=== PATIENT | female | born 2000 | race Two or more races ===

== ENCOUNTER 2025-06-28 17:48 | Emergency (ER) | payer MEDICAID, OTHER ==
[~2025-06-28] VITALS: Ht 154.9 cm; Wt 100.4 kg
[2025-06-28] MEDS ORDERED: ALBUTEROL SULF 2.5 MG/0.5ML(0.5%) NEB SOLN NEB ONE (18:15)
[2025-06-28] MEDS ORDERED: IPRATROPIUM BROM 0.5 MG/2.5ML INH SOL NEB ONE (18:15)
--- NOTE | 2025-06-28 18:29 | ED.PDOC ---
SOB-HPI HPI Comments s Pt presents to the ER with C/O asthma attack. Pt states that her family dog got out of their yard and she was chasing the dog causing her to wheeze and become SOB. Pt reports tightness in throat, pt denies SOB, RR even and unlabored, SPO2 97% on RA, lung sounds clear bilaterally. Pt secondary compliant of anxiety. PMH- Lupus, anemia, CKF, fatty liver, HTN, Depression, hyperparathyroidism Chief Complaint: Asthma Time Seen by MD: 18:00 Reviewed notes: Nurses Notes, Medications, Allergies Information Source: Patient Mode of Arrival: Ambulatory Past Medical History PAST MEDICAL HISTORY: Anxiety Past Medical History (Other): Lupus Family History Family History: Unknown All Other Systems: Reviewed and Negative (see hpi) Physical Exam General Appearance: No Apparent Distress, Normal HEENT: Normal ENT Inspection, Pharynx Normal, TMs Normal Neck: Full Range of Motion, Non-Tender, Normal Respiratory: Decreased Breath Sounds, No Accessory Muscle Use, No Respiratory Distress, Wheezing Cardiovascular: No Edema, No JVD, No Murmur, No Gallop, Normal Peripheral Pulses, Regular Rate/Rhythm Breast Exam: Deferred Gastrointestinal: No Organomegaly, Non Tender, No Pulsatile Mass, Normal Bowel Sounds, Soft Genitalia: Deferred Pelvic: Deferred Rectal: Deferred Extremities: Normal range of motion, No pedal edema Musculoskeletal : Apperance: Normal Neurologic: Alert, No Motor Deficits, Normal Affect, Normal Mood, No Sensory Deficits Cerebellar Function: Normal Reflexes: Normal Skin: Dry, Normal Color, Warm Lymphatic: No Adenopathy Was a procedure done? Was a procedure done?: No Differential Dx Differential Diagnosis: Anxiety, Asthma, Bronchitis, Panic Attack, Pneumonia, Pneumothorax X-Ray, Labs, Meds, VS Vital Signs Date Time Temp Pulse Resp B/P (MAP) Pulse Ox O2 Delivery O2 Flow Rate FiO2 06/28/25 18:50 18 98 Room Air* 0 21 06/28/25 18:30 98.8 106 17 144/88 (106) 99 98.8 06/28/25 17:56 97.8 106 22 147/99 99 97.8 Current Medications Medications (Trade) Dose Ordered Sig/Josefa Route Start Time Stop Time Status Last Admin Albuterol (Ventolin Medneb) 2.5 mg ONCE ONCE NEB 06/28/25 18:45 06/28/25 18:46 DC 06/28/25 18:50 Ipratropium [place] (Atrovent Medneb) 0.5 mg ONCE ONCE NEB 06/28/25 18:45 06/28/25 18:46 DC 06/28/25 18:50 X-Ray, Labs, Meds, VS Comment Noted improvement after breathing treatment patient requesting discharge at this time. Advised to rest increase p.o. fluids with electrolytes. Follow up with her PCP in 2-3 days as necessary ER return precautions given patient indicates understanding agrees with discharge plan of care Time of 1ST Reevaluation: 18:10 Reevaluation 1ST: Unchanged Time of 2ND Reevaluation: 19:06 Reevaluation 2ND: Improved Patient Education/Counseling: Diagnosis, Treatment, Need For Follow Up Family Education/Counseling: No Family Present SEPSIS Sepsis Screen Date sepsis recognized/suspect: Jun 28, 2025 Time Sepsis recognized/suspect: 1755 Recent Procedure: No On Antibiotic Therapy: No Respiratory Rate >20: No Heart Rate >90: Yes Temp<36 C (96.8 F) or >38.3 C: No SBP <90 or MAP <65 mmHG: No New Acute Mental Status Change: No Is the patient on CPAP, BIPAP,: No Physician Orders Med Neb Initial Treatment (06/28/25 18:15) Vital Signs Date Time Temp Pulse Resp B/P (MAP) Pulse Ox O2 Delivery O2 Flow Rate FiO2 06/28/25 18:50 18 98 Room Air* 0 21 06/28/25 18:30 98.8 106 17 144/88 (106) 99 98.8 06/28/25 17:56 97.8 106 22 147/99 99 97.8 Medications Medications Dose Ordered Sig/Josefa Route Start Time Stop Time Status Last Admin Dose Admin Albuterol 2.5 mg ONCE ONCE NEB 06/28/25 18:45 06/28/25 18:46 DC 06/28/25 18:50 Ipratropium [place] 0.5 mg ONCE ONCE NEB 06/28/25 18:45 06/28/25 18:46 DC 06/28/25 18:50 Departure 1 Departure Time of Disposition: 19:06 Impression: Primary Impression: Acute asthma Disposition: 01 HOME / SELF CARE / HOMELESS Condition: Stable Discharged With: Relative (Mother) Critical Care Note Critical Care Time?: No Stability Stability form required: No Heart Score Heart Score: Heart Score Response (Comments) Value History N/A 0 EKG N/A 0 Age <45 0 Risk Factors N/A 0 Troponin N/A 0 Total 0 JAY[facility] Jun 28, 2025 18:29
[2025-06-28 18:30] VITALS: BP 144/88; PULSE 106; TEMP 98.8
[2025-06-28 18:50] VITALS: RESP 18; O2SAT 98
[2025-06-28] MEDS: ALBUTEROL SULF 2.5 MG/0.5ML(0.5%) NEB SOLN NEB ONE (18:50)
[2025-06-28] MEDS: IPRATROPIUM BROM 0.5 MG/2.5ML INH SOL NEB ONE (18:50)
== END 2025-06-28 19:08 | disposition home or self-care (01) ==
LOC: ER 17:48
DX: J45.909 Unspecified asthma, uncomplicated (principal); F41.9 Anxiety disorder, unspecified; I10 Essential (primary) hypertension
CPT/HCPCS: 94640